=== PATIENT | female | born 1980 | race Hispanic/Latino ===

== ENCOUNTER 2018-04-28 08:06 | Emergency (ER) | payer OTHER ==
[~2018-04-28] VITALS: Ht 160 cm; Wt 71.2 kg
--- OUTSIDE RECORDS SUMMARY | 2018-04-28 08:08 | XMS REPORT ---
[email or web address] Address Unknown Phone Unavailable Care Team Providers Care Wildlife Protector Name Role Phone Unavailable Unavailable Payers Payer Name Policy Type Policy Number Effective Date Expiration Date Problems This patient has no known problems. Allergies, Adverse Reactions, Alerts This patient has no known allergies or adverse reactions. Medications This patient has no known medications.
--- NOTE | 2018-04-28 08:57 | Diagnostic Imaging Report ---
PROCEDURE:CXR 2 VIEW - HOPD COMPARISON:None. INDICATIONS:COUGH CONGESTION X5 DAYS FINDINGS:The lungs are free of infiltrate. No pulmonary edema. No evidence of pleural effusion or pneumothorax. No nodules or masses. Regional osseous structures appear unremarkable. CONCLUSION:Normal chest. Lito Gleason D.O. Dictated by: Lito Gleason D.O. on 04/28/2018 at 9:06 Electronically approved by: Lito Gleason D.O. on 04/28/2018 at 9:06
[2018-04-28 09:19] VITALS: BP 122/65
== END 2018-04-28 09:21 | disposition home or self-care (01) ==
LOC: FSED 08:06
DX: R05 Cough (principal); J20.9 Acute bronchitis, unspecified
CPT/HCPCS: 71046; 87400; 99283